=== PATIENT | female | born 1985 | race African-American/Black ===

== ENCOUNTER 2024-06-18 00:56 | Emergency (ER) | payer OTHER ==
[~2024-06-18] VITALS: Ht 165.1 cm; Wt 76.0 kg
[~2024-06-18 00:56] MED LIST: KEFLEX500 MG PO; ONDANSETRON4 MG PO; PHENERGAN SUP12.5 MG RE
[2024-06-18] MEDS ORDERED: AZITHROMYCIN 250 MG/TAB PO ONE (02:00)
[2024-06-18] MEDS ORDERED: metroNIDAZOLE 500 MG/TAB PO ONE (02:00)
[2024-06-18 02:16] LABS: URINE BILIRUBIN - DIPSTICK Negative (NEGATIVE); URINE BLOOD DIPSTICK Negative (NEGATIVE); URINE COLOR Yellow; URINE GLUCOSE - DIPSTICK Negative (NEGATIVE); URINE KETONE Negative (NEGATIVE); URINE LEUK ESTERASE Large (NEGATIVE); URINE NITRITE - DIPSTICK Negative (Negative); URINE PH 8.5 (4.5-8.0); URINE PROTEIN - DIPSTICK Negative (NEG-TRACE); URINE SPECIFIC GRAVITY 1.015
[2024-06-18 02:23] LABS: URINE BACTERIA MODERATE hpf; URINE SQUAMOUS EPITHELIAL CELL MANY EPI/hpf (0-FEW)
[2024-06-18 02:45] VITALS: BP 106/67
[2024-06-18 02:51] LABS: ALBUMIN 3.4 g/dL (3.2-5.0); BILIRUBIN, TOTAL 0.5 mg/dL (0.02-1.3); CREATININE 0.6 mg/dL (0.5-1.0); TOTAL PROTEIN 6.2 g/dL (6.3-8.2)
[2024-06-18 02:53] LABS: POTASSIUM 4.2 mmol/l (3.5-5.1)
[2024-06-18 02:55] LABS: BASO% 0.2 % (0-3); HEMATOCRIT 32.4 % (37.0-47.0); HEMOGLOBIN 11.4 g/dl (12.0-16.0); IMMATURE GRANULOCYTES 0.9 % (0.0-5.0); MEAN CELL VOLUME 79.8 fL CALC (80.0-100.0); MEAN CORPUSCULAR HGB 28.1 pG CALC (26.0-32.0); MEAN CORPUSCULAR HGB CONC 35.2 g/dL CAL (32.0-36.0); MONO% 8.3 % (2-13); NEUT# 4.83 thou/uL (2.00-7.15); NEUT% 59.6 % (42-76); RED BLOOD COUNT 4.06 mill/uL (4.20-5.60); RED CELL DISTRI WIDTH 14.3 % (11.5-15.5)
== END 2024-06-18 03:07 | disposition short-term general hospital (02) | DRG 832 ==
LOC: ED 00:56
PROVIDERS: Family Medicine
DX: O23.93 Unspecified genitourinary tract infection in pregnancy, third trimester (principal); O23.43 Unspecified infection of urinary tract in pregnancy, third trimester; N39.0 Urinary tract infection, site not specified; O09.523 Supervision of elderly multigravida, third trimester; Z3A.37 37 weeks gestation of pregnancy